=== PATIENT | female | born 1945 | race Caucasian/White ===

== ENCOUNTER 2024-03-23 07:52 | Day surgery (SDC) | payer MEDICARE, OTHER ==
[~2024-03-23] VITALS: Ht 160 cm; Wt 73.3 kg
[~2024-03-23 07:52] MED LIST: ARICEPT 5MG PO; ASPI325T6 PO; ASPIRIN 81M81 MG/TA2 PO; CALCIUM 600 PLU1 TAB PO; COZAAR 25MG25 MG/TAB PO; DETROL LA4; DETROL LA4 PO; KEPPRA 500MG500 MG PO; LUTEIN20 M1 PO; MASON NATURAL2000 IU PO; MULTIPLE VITAMI1 CAP PO; NATURAL E400 IU PO; NATURE'S BLE1000 MCG PO; NORVASC 5MG5 MG/TAB PO; ROXICODONE 55 MG/TAB PO; SYNTHROID 0.10.15 MG PO; TOPROL XL 50MG50 MG PO; VITAMIN C500 MG; ZOCOR 20MG20 MG PO
[2024-03-23] MEDS ORDERED: PRESERVISION A1 EAC3 PO (08:25)
[2024-03-23] MEDS ORDERED: CENTRUM SILVER1 TAB PO (08:27)
[2024-03-23] MEDS ORDERED: URITRAX47 GM PO (08:27)
[2024-03-23] MEDS ORDERED: PRIL40 PO (08:29)
[2024-03-23] MEDS ORDERED: VESICARE 5MG5 MG PO (08:29)
[2024-03-23] MEDS ORDERED: TYLENOL 8 HR PO (08:30)
[2024-03-23] MEDS ORDERED: NORVASC 5MG5 MG/TAB PO (08:31)
[2024-03-23] MEDS ORDERED: ARICEPT10 MG PO (08:31)
[2024-03-23] MEDS ORDERED: COZAAR 25MG25 MG/TAB PO (08:31)
[2024-03-23] MEDS ORDERED: RT ADVAIR 128 DISKUS IH (08:34)
[2024-03-23 08:38] VITALS: BP 134/85; PULSE 63; TEMP 97.6
--- NOTE | 2024-03-23 09:33 | NUR ---
See loop insertion sheet for procedure documentation.
--- NOTE | 2024-03-23 09:37 | NUR ---
Bedside report completed with Barrera BENNETT. Call light within reach, insertion site reviewed. Barrera BENNETT denies questions/concerns.
[2024-03-23 10:01] VITALS: BP 139/92; PULSE 61
--- NOTE | 2024-03-23 10:01 | NUR ---
Dressing remains clean, dry and intact. DC instructions reviewed with pt and family, all express understanding. Pt is steady on feet, ambulates to restroom, then out to entrance with belongings. This nurse walks along with pt with wheelchair if needed, but pt states she prefers to walk out to daughter's car.
== END 2024-03-23 10:01 | disposition home or self-care (01) ==
LOC: COL.CAR 07:52
DX: I48.0 Paroxysmal atrial fibrillation (principal); I10 Essential (primary) hypertension; I63.9 Cerebral infarction, unspecified; Z79.899 Other long term (current) drug therapy
CPT/HCPCS: 27886; C1764